=== PATIENT | male | born 1990 | race Caucasian/White ===

== ENCOUNTER → 2019-11-29 13:01 | Outpatient (BNVA) | payer MEDICARE, MEDICAID, SELFPAY | PROVIDERS: PCP Family Medicine; Visit Provider Psychiatry & Neurology Psychiatry | DX: F90.2 Attention-deficit hyperactivity disorder, combined type (principal); F33.1 Major depressive disorder, recurrent, moderate | CPT/HCPCS: 99214; 99215 ==

== ENCOUNTER → 2020-01-02 16:00 | Outpatient (BNVA) | payer MEDICARE, MEDICAID, SELFPAY | PROVIDERS: PCP Family Medicine; Visit Provider Nurse Practitioner Family | DX: R07.9 Chest pain, unspecified (principal); J01.90 Acute sinusitis, unspecified; M54.2 Cervicalgia | CPT/HCPCS: 80053; 80061; 83735; 84443; 85025 ==

== ENCOUNTER → 2020-01-30 13:04 | Outpatient (BNVA) | payer MEDICARE, MEDICAID, SELFPAY | PROVIDERS: PCP Family Medicine; Visit Provider Psychiatry & Neurology Psychiatry | DX: F33.2 Major depressive disorder, recurrent severe without psychotic features (principal); F43.12 Post-traumatic stress disorder, chronic | CPT/HCPCS: 99213 ==

== ENCOUNTER → 2020-03-26 08:48 | Outpatient (BNVA) | payer MEDICARE, MEDICAID, SELFPAY | PROVIDERS: PCP Family Medicine; Visit Provider Psychiatry & Neurology Psychiatry | DX: F33.2 Major depressive disorder, recurrent severe without psychotic features (principal); F43.12 Post-traumatic stress disorder, chronic | CPT/HCPCS: 99213 ==

== ENCOUNTER → 2020-12-17 14:55 | Outpatient (BNVA) | payer MEDICARE, SELFPAY | PROVIDERS: PCP Nurse Practitioner; Visit Provider Nurse Practitioner | DX: K21.9 Gastro-esophageal reflux disease without esophagitis (principal); F43.12 Post-traumatic stress disorder, chronic; Z13.6 Encounter for screening for cardiovascular disorders | CPT/HCPCS: 80053; 80061; 83721; 84443; 85025 ==

== ENCOUNTER → 2021-03-24 12:32 | Outpatient (BNVA) | payer MEDICARE, SELFPAY | PROVIDERS: PCP Nurse Practitioner; Visit Provider Family Medicine | DX: M54.9 Dorsalgia, unspecified (principal) | CPT/HCPCS: 72083 ==

== ENCOUNTER → 2021-04-26 11:00 | Outpatient (BNVA) | payer MEDICARE, SELFPAY | PROVIDERS: PCP Nurse Practitioner; Visit Provider Nurse Practitioner | DX: E78.2 Mixed hyperlipidemia (principal); J45.41 Moderate persistent asthma with (acute) exacerbation; G43.009 Migraine without aura, not intractable, without status migrainosus | CPT/HCPCS: 80053; 80061 ==

== ENCOUNTER → 2021-05-04 10:38 | Outpatient (BNVA) | payer MEDICARE, MEDICAID, SELFPAY | PROVIDERS: PCP Nurse Practitioner; Visit Provider Orthopaedic Surgery | DX: M54.5 Low back pain (principal); M51.34 Other intervertebral disc degeneration, thoracic region | CPT/HCPCS: 72110 ==

== ENCOUNTER → 2021-11-16 16:07 | Outpatient (BNVA) | payer MEDICARE, SELFPAY | PROVIDERS: PCP Nurse Practitioner; Visit Provider Nurse Practitioner Family | DX: R11.2 Nausea with vomiting, unspecified (principal) | CPT/HCPCS: 80053; 85025; 87635 ==

== ENCOUNTER 2021-11-17 17:21 | Emergency (ER) | payer MEDICARE, MEDICAID, SELFPAY ==
[2021-11-17 17:40] VITALS: BP 138/84; PULSE 90; RESP 20; TEMP 37.2; O2SAT 99; BMI 32.5
--- NOTE | 2021-11-17 20:29 | ED_ITS ---
HPI - Nausea/Vomiting/Diarrhea General: Chief complaint: Nausea/Vomiting/Diarrhea Stated complaint: N/V x5 days Time Seen by Provider: 11/17/21 20:07 History of Present Illness: HPI Narrative: Patient is a 31-year-old male who comes to the ED with nausea and vomiting. Symptoms started approximately 4 days ago. He states that he has not been able to keep any food or fluids down for the past 4 days. Whenever he eats or drinks something he ends up vomiting it up 15 to 20 minutes later. Denies any fever, abdominal pain, chest pain, upper respiratory symptoms, shortness of breath or bowel symptoms. Patient does endorse having some decreased urine output since he has not been able to keep fluids down. Associated nausea: Yes Associated symtoms: Reports nausea; Denies change in vision, chest pain, dysuria, fatigue, headache(s) or palpitations Review of Systems Const: Denies: fever(s), chills or fatigue Eyes: Denies: change in vision or eye discomfort ENMT: Denies: throat pain, odynophagia, nasal discharge or nasal congestion Card: Denies: chest pain, palpitations, edema, swelling of feet/ankles, dyspnea on exertion or orthopnea Resp: Denies: dyspnea, productive cough or non-productive cough GI: Reports: nausea and vomiting; Denies: abdominal pain, diarrhea, constipation or hematochezia : Reports: oliguria; Denies: flank pain, difficulty urinating, dysuria or hematuria Musc: Denies: neck pain, back pain or extremity swelling Skin/Breast: Denies: rash or new lesions Neuro: Denies: headache(s), numbness in extremities or weakness in extremities [facility] ED PFSH: Medical History Anxiety Asthma Broken arm GERD (gastroesophageal reflux disease) Migraine headache without aura PTSD (post-traumatic stress disorder) Surgical History No pertinent past surgical history Family History Family/Other Hyperlipidemia Family/Other Family history of premature coronary artery disease, Onset Age: 44 ASHD, PPM- uncle Social History Smoking and tobacco status: never smoked Quit status (tobacco): has tried quititng Number of times tried to quit tobacco: 1 Second hand smoke exposure: No Smoking risk assessment/counseling performed?: Yes Alcohol intake: current Alcohol intake frequency: few times a month Desire information about alcohol rehabilitation?: No Counseling given: No Desire information about substance/drug rehabilitation?: No Counseling given: No Adopted: No Caregiver/support person: No Lives independently: Yes Household members: none Housing: Other Details: Rents a room Marital status: Single Number of children: 0 service: No Current occupational status: disabled Pets and animals: Yes Pets & animals: cat(s) and dog(s) History of recent travel: No Current gender identity: Male Physical Exam Const: COMMON NORMALS: no acute distress, patient oriented x3 and alert GENERAL APPEARANCE: cooperative and comfortable HENMT: COMMON NORMALS: normocephalic HEAD & SCALP: normocephalic MOUTH: Normal oral and palatal mucosa present THROAT: posterior oropharynx normal and uvula midline Neck/C-Spine: COMMON NORMALS: supple GENERAL: Yes normal visual inspection Resp: COMMON NORMALS: normal respiratory effort, No retractions, No use of accessory muscles and clear to auscultation bilaterally AUSCULTATION: clear to auscultation bilaterally Cardio: COMMON NORMALS: regular rate, regular rhythm, S1 normal heart sound present, S2 normal heart sound present, No gallops present (Cardio), No clicks present (Cardio), No murmurs present (Cardio) and Peripheral pulses 2+ throughout RATE: regular rate RHYTHM: regular rhythm HEART SOUNDS: S1 normal heart sound present and S2 normal heart sound present PERIPHERAL PULSES: Peripheral pulses 2+ throughout GI: COMMON NORMALS: Normal to inspection, nondistended, normoactive bowel sounds present, Soft to palpation, non-tender and no masses PALPATION: Yes Soft to palpation : COMMON NORMALS: Yes no CVA tenderness BLADDER/KIDNEY EXAM: Yes no CVA tenderness Back/Pelvis: COMMON NORMALS: no CVA tenderness Extremity: COMMON NORMALS: normal to inspection Neuro: COMMON NORMALS: patient oriented x3 and moves all extremities SENSORIUM/ORIENTATION: Yes alert Skin: GENERAL SKIN EXAM: dry skin Course Reevaluation(s): Reevaluation #1: After patient had 1.5 L of IV fluids and Zofran his symptoms improved. He is able to keep p.o. fluids down here in the ED. Patient is ready to go home. Time: 22:34 Vital Signs: Vital signs: Vital Signs Temperature 98.4 F 11/17/21 22:52 Pulse Rate 70 11/17/21 22:52 Respiratory Rate 12 11/17/21 22:52 Blood Pressure 108/87 11/17/21 22:52 Pulse Oximetry 96 11/17/21 22:52 MDM - Nausea/Vomiting/Diarrhea MDM Narrative: Medical decision making narrative: Patient is a 31-year-old male comes to the ED with nausea and vomiting. He has been having symptoms for about 5 days. He has not been able to keep any food or fluids down. Vitals stable. Patient appears in no acute distress or pain. The rest of exam is unremarkable. Labs are unremarkable. Patient was given 1.5 L of IV fluids and Zofran here in the ED and his symptoms improved greatly. He is able to keep p.o. fluids down here in the ED. He says he was feeling a lot better and ready to be discharged home. Patient diagnosed with nausea and vomiting and discharged home with a prescription for Reglan. Return to ED precautions given. Follow-up with PCP in 7 to 10 days reevaluation. Patient understood agree with plan. Lab Data: Attestation: I reviewed the patient's lab results. Labs: Lab Results 11/17/21 11/17/21 11/17/21 20:55 20:55 22:05 WBC 5.4 10^3/uL 10^3/ uL (4.0-10.0) RBC 5.12 10^6/uL 10^6 /uL (4.1-5.3) Hgb 12.9 g/dL g/dL (11.7-16.6) Hct 41.2 % L % (42.0-52.0) MCV 80.5 fl fl (80-94) MCH 25.2 pg L pg (28.0-34.0) MCHC 31.3 g/dL g/dL (30.0-36.0) RDW 13.2 % % (12.1-15.1) Plt Count 322 10^3/cmm 10^3 /cmm (130-400) MPV 10.8 fL H fL (7.4-10.4) Neut % (Auto) 54.4 % % Lymph % (Auto) 31.0 % % Wilkinson % (Auto) 9.7 % % Eos % (Auto) 4.5 % % Baso % (Auto) 0.2 % % Neut # (Auto) 2.92 10^3/uL 10^3 /uL (1.8-7.7) Lymph # (Auto) 1.7 10^3/uL 10^3/ uL (0.8-4.8) Wilkinson # (Auto) 0.5 10^3/uL 10^3/ uL (0.2-0.9) Eos # (Auto) 0.2 10^3/uL 10^3/ uL (0.0-0.8) Baso # (Auto) 0.0 10^3/uL 10^3/ uL (0.0-0.1) Nucleated RBC % (a uto) 0 % % Nucleated RBCs # 0.0 /100WBC /100W BC Sodium 144 mmol/L mmol/L (136-145) Potassium 3.4 mmol/L L mmol /L (3.5-5.1) Chloride 104 mmol/L mmol/L (98-107) Carbon Dioxide 24 mmol/L mmol/L (22-29) Anion Gap 19.4 H (5-19) BUN 9 mg/dL mg/dL (6-20) Creatinine 1.0 mg/dL mg/dL (0.7-1.2) GFR Calculation 88.3 mL/min L mL/ min (90-130) Glucose 84 mg/dL mg/dL (65-115) Calculated Osmolal ity 296 mOsm/kg H mOs m/kg (285-295) Calcium 8.7 mg/dL mg/dL (8.5-10.5) Total Bilirubin 0.3 mg/dL mg/dL (0.15-1.2) AST 38 U/L U/L (0-40) ALT 49 U/L H U/L (0-41) Alkaline Phosphata se 69 IU/L IU/L (40-130) Total Protein 7.1 g/dL g/dL (6.6-8.7) Albumin 4.5 g/dL g/dL (3.5-5.2) Globulin 2.6 g/dL g/dL (1.3-4.6) Lipase 45 U/L U/L (13-60) Urine Color Straw (Yellow) Urine Appearance Clear (CLEAR) Urine pH 7 (5-7) Ur Specific Gravit y 1.000 L (1.005-1.030) Urine Protein Neg (Negative) Urine Glucose (UA) Norm (Normal) Urine Ketones Negative (Negative) Urine Blood Neg (Negative) Urine Nitrate Negative (Negative) Urine Bilirubin Neg (Negative) Urine Urobilinogen Norm mg/dL mg/dL (Negative) Ur Leukocyte Alexa ase Negative (Negative) Discharge Plan Discharge Patient Disposition: Home Clinical Impression: Nausea & vomiting Qualifiers: Vomiting type: unspecified Qualified Code(s): R11.2 - Nausea with vomiting, unspecified Condition: Stable Prescriptions: New Reglan 10 mg tablet 10 mg PO Q6H PRN (Reason: nausea and vomiting) Qty: 20 RF: 0 No Action omega-3 fatty acids [Fish Oil Concentrate] 1,000 mg capsule 1,000 mg PO BID 30 Days Qty: 60 RF: 2 topiramate [Topamax] 25 mg tablet 25 mg PO BID Qty: 60 RF: 2 budesonide-formoterol [Symbicort] 80-4.5 mcg/actuation HFA aerosol inhaler 2 puff inhalation BID 30 Days Qty: 10.2 RF: 2 albuterol sulfate [ProAir HFA] 90 mcg/actuation HFA aerosol inhaler 2 puff INHALATION Q6H PRN (Reason: shortness of breath or wheezing) Qty: 18 RF: 2 fenofibrate nanocrystallized [Tricor] 145 mg tablet 145 mg PO DAILY 30 Days Qty: 30 RF: 2 ondansetron 8 mg tablet,disintegrating 8 mg PO Q8H PRN (Reason: nausea and vomiting) Qty: 21 RF: 0 venlafaxine [Effexor XR] 37.5 mg capsule,extended release 24hr 37.5 mg PO DAILY Qty: 30 RF: 2 Discharge Orders: Discharge ED (Routine); Ordered 11/17/21 Ordered By: Iraj Arreola Referrals: Reina Reilly FNP-C [Primary Care Provider] - Discharge Diet: Regular Discharge Activity: Resume usual activity Patient Instructions: Acute Nausea and Vomiting (ED) Activity Restrictions/Additional Instructions: Follow-up with medical provider as directed in 7 to 10 days for reevaluation. Take medications as prescribed. Make sure you drink plenty of fluids and stay hydrated. Return to the ER or your medical provider if condition worsens. Please read and understand discharge instructions. Thank you for choosing [facility] for your healthcare needs today. Please realize this is an emergency room and that we are providing you with a medical screening exam and this may not be complete and all inclusive of all the testing and or work up that you may need to determine your ailment or severity of your illness. It is very important that you follow up as instructed or that you return to the Emergency Department should you have concerns or if your condition changes or worsens in any way. Coding Level of Care Code ED Instrument Inspector for Yair Gee Exam Comprehensive
[2021-11-17] MEDS: sodium chloride 0.9% 1,000 ML 999 ML IV (20:44)
[2021-11-17] MEDS: ondansetron 2 mg/ML SDV 2 mL 4 MG IVP (20:45)
[2021-11-17 20:49] VITALS: BP 131/77; PULSE 66; RESP 18; O2SAT 96
[2021-11-17 21:03] LABS: Basophils % 0.2 %; Eosinophils # 0.2 10^3/uL (0.0-0.8); Eosinophils % 4.5 %; Hematocrit 41.2 % (42.0-52.0); Hemoglobin 12.9 g/dL (11.7-16.6); Lymphocytes # 1.7 10^3/uL (0.8-4.8); Mean Corpuscular HGB Conc 31.3 g/dL (30.0-36.0); Mean Corpuscular Hemoglobin 25.2 pg (28.0-34.0); Mean Corpuscular Volume 80.5 fl (80-94); Mean Platelet Volume 10.8 fL (7.4-10.4); Monocytes # 0.5 10^3/uL (0.2-0.9); Monocytes % 9.7 %; Neutrophils # 2.92 10^3/uL (1.8-7.7); Neutrophils % 54.4 %; Nucleated Red Blood Cells % 0 %; Platelet Count 322 10^3/cmm (130-400); Red Blood Count 5.12 10^6/uL (4.1-5.3); Red Cell Distribution Width 13.2 % (12.1-15.1); White Blood Count 5.4 10^3/uL (4.0-10.0)
[2021-11-17 21:24] LABS: Alanine Aminotransferase 49 U/L (0-41); Albumin Level 4.5 g/dL (3.5-5.2); Alkaline Phosphatase 69 IU/L (40-130); Anion Gap 19.4 (5-19); Aspartate Amino Transferase 38 U/L (0-40); Blood Urea Nitrogen 9 mg/dL (6-20); Calcium 8.7 mg/dL (8.5-10.5); Carbon Dioxide 24 mmol/L (22-29); Chloride 104 mmol/L (98-107); Globulin 2.6 g/dL (1.3-4.6); Glomerular Filtration Rate 88.3 mL/min (90-130); Glucose 84 mg/dL (65-115); Lipase 45 U/L (13-60); Osmolality Calculated 296 mOsm/kg (285-295); Potassium 3.4 mmol/L (3.5-5.1); Sodium 144 mmol/L (136-145); Total Bilirubin 0.3 mg/dL (0.15-1.2); Total Protein 7.1 g/dL (6.6-8.7)
[2021-11-17] MEDS: sodium chloride 0.9% 500 ML 999 ML IV (22:09)
[2021-11-17] MEDS: metoclopramide 5 mg/mL SDV 2 mL 10 MG IVP (22:09)
[2021-11-17 22:10] LABS: Add Urine Microscopic? NO; Charge for UA Resulting for Rev
[2021-11-17 22:34] LABS: Bilirubin Urine Neg (Negative); Blood Urine Neg (Negative); Glucose Urine UA Norm (Normal); Ketones Urine Negative (Negative); Leukocyte Esterase Urine Negative (Negative); Nitrate Urine Negative (Negative); Protein Urine Neg (Negative); Urine Appearance Clear (CLEAR); Urine Color Straw (Yellow); Urobilinogen Urine Norm (Negative); pH Urine 7 (5-7)
[2021-11-17 22:52] VITALS: BP 108/87; PULSE 70; RESP 12; TEMP 36.9; O2SAT 96
== END 2021-11-17 23:01 | disposition home or self-care (01) ==
PROVIDERS: Emergency Provider Physician Assistant; PCP Nurse Practitioner
DX: R11.2 Nausea with vomiting, unspecified (principal); J45.909 Unspecified asthma, uncomplicated
CPT/HCPCS: 80053; 81003; 83690; 85025; 96361; 96374; 96375; 99284; J2405; J2765; J7030; J7040